=== PATIENT | male | born 1960 | race Caucasian/White ===

== ENCOUNTER 2017-11-01 10:42 | Emergency (ER) | payer SELFPAY ==
[~2017-11-01] VITALS: Ht 167.6 cm; Wt 112.7 kg
[2017-11-01] MEDS ORDERED: HYDROCODONE/ACETAMINOPHEN 5-325 MG TABLET PO ONE (14:30)
[2017-11-01] MEDS ORDERED: CYCLOBENZAPRINE HCL 10 MG TABLET PO ONE (14:30)
[2017-11-01 15:45] VITALS: BP 141/84
== END 2017-11-01 15:52 | disposition home or self-care (01) ==
LOC: EMS 10:44
DX: M54.5 Low back pain (principal)
CPT/HCPCS: 99283